=== PATIENT | male | born 1985 ===

== ENCOUNTER 2021-12-10 08:30 | Emergency (ER) | payer BC ==
[2021-12-10] MEDS ORDERED: Ketorolac 30 MG/ML SDV IVPUSH ONE (08:50)
[2021-12-10 09:20] LABS: BLOOD UREA NITROGEN,BUN 17 mg/dL (7.0-18.0); CARBON DIOXIDE,CO2 23.3 mmol/L (21.0-32.0); CHLORIDE,CL 104 mmol/L (98-107); GLUCOSE RANDOM 102 mg/dL (74-106); POTASSIUM,K 4.1 mmol/L (3.5-5.1); SODIUM,NA 137 mmol/L (136-148)
[2021-12-10 09:21] LABS: ESTIMATED GFR > 60.0 ml/min
== END 2021-12-10 10:51 | disposition home or self-care (01) ==
LOC: MW.ED 08:30
DX: R09.1 Pleurisy (principal); Z20.822 Contact with and (suspected) exposure to COVID-19
CPT/HCPCS: 36415; 71045; 80053; 84484; 85025; 85379; 86140; 87635; 87651; 93005; 96374; 99284; J1885; 93010; U0002